=== PATIENT | female | born 1945 | race Caucasian/White ===

== ENCOUNTER 2020-04-17 13:56 | Inpatient (IN) | payer OTHER ==
[~2020-04-17 13:56] MED LIST: BISOPROLOL-HCT1 EAC1 PO; COUMADIN5 MG PO; FEOSOL325 MG PO; JOINT SUPPORT1 EACH PO; LOVENOX40 MG/0.4 SC; OXYCODONE-ACET1 EAC1 PO; PLENDIL **OUT O5 MG PO; PRILOSEC20 MG PO; XARELTO10 MG PO; ZYFLAMEND PO
[2020-04-17 16:19] LABS: BASOPHIL 0.7 % (0-2); EOSINOPHIL 0.8 % (0-7); HCT 39.7 % (37.0-47.0); HGB 13.5 g/dl (12.5-16.0); LYMPHOCYTE 9.7 % (15-48); MCH 30.7 pg (25.0-31.0); MCV 90.2 fL (78.0-100.0); MONOCYTE 5.6 % (0-12); MPV 10.2 fL (6.0-9.5); NEUTROPHIL 82.5 % (41-80); NRBC 0; PLT 240 K/uL (150-400); WBC 10.7 K/uL (4.0-10.5)
[2020-04-17 16:30] LABS: ALBUMIN 3.8 g/dL (3.4-5.0); BILIRUBIN - TOTAL 0.3 mg/dL (0.2-1.0); BUN/CREAT RATIO (CALC) 82.9 RATIO; CREATININE 0.35 mg/dL (0.51-0.95); GLOBULIN (CALCULATION) 4.2 g/dL; POTASSIUM 3.9 mmol/L (3.5-5.1)
[2020-04-17 16:33] LABS: BILIRUBIN NEGATIVE (NEGATIVE); BLOOD NEGATIVE Ery/uL (NEGATIVE); CLARITY CLEAR (CLEAR); COLOR YELLOW (YELLOW); GLUCOSE (U) NORMAL (NORMAL); LEUKOCYTES NEGATIVE Leu/uL (NEGATIVE); NITRITE NEGATIVE (NEGATIVE); PROTEIN NEGATIVE (NEGATIVE); UROBILINOGEN 0.2 mg/dL (0.2-1.0)
[2020-04-17] MEDS ORDERED: ZIAC 5-6.25 MG1 EACH PO (20:26)
[2020-04-17] MEDS ORDERED: ALENDRONATE SOD70 MG PO (20:27)
[2020-04-17] MEDS ORDERED: FELODIPINE ER2.5 MG PO (20:27)
[2020-04-17] MEDS ORDERED: PLAQUENIL200 MG PO (20:28)
[2020-04-19 06:12] LABS: BASOPHIL 0.8 % (0-2); EOSINOPHIL 3.8 % (0-7); HCT 31.2 % (37.0-47.0); HGB 10.4 g/dl (12.5-16.0); LYMPHOCYTE 19.5 % (15-48); MCH 31.1 pg (25.0-31.0); MCHC 33.3 g/dL (32.0-36.0); MCV 93.4 fL (78.0-100.0); MONOCYTE 11.4 % (0-12); NEUTROPHIL 64.1 % (41-80); NRBC 0; PLT 147 K/uL (150-400); RBC 3.34 M/uL (4.20-5.40); RDW 13.5 % (11.5-14.0)
[2020-04-19 06:31] LABS: BUN/CREAT RATIO (CALC) 38.7 RATIO; CREATININE 0.31 mg/dL (0.51-0.95); POTASSIUM 3.4 mmol/L (3.5-5.1)
[2020-04-19 07:43] LABS: INR 1.19 (0.9-1.2); PROTHROMBIN TIME 14.3 SECONDS (11.4-13.6); PTT 29.5 SECONDS (22.2-34.7)
[2020-04-19] MEDS ORDERED: PERCOCET 5-3251 EACH PO (11:34)
[2020-04-20 06:05] LABS: BASOPHIL 0.5 % (0-2); EOSINOPHIL 3.5 % (0-7); HCT 26.5 % (37.0-47.0); HGB 8.8 g/dl (12.5-16.0); LYMPHOCYTE 17.8 % (15-48); MCH 30.8 pg (25.0-31.0); MCHC 33.2 g/dL (32.0-36.0); MCV 92.7 fL (78.0-100.0); MONOCYTE 9.6 % (0-12); MPV 9.8 fL (6.0-9.5); NEUTROPHIL 68.3 % (41-80); NRBC 0; PLT 143 K/uL (150-400); RBC 2.86 M/uL (4.20-5.40); RDW 13.2 % (11.5-14.0); WBC 9.4 K/uL (4.0-10.5)
[2020-04-20 06:17] LABS: BUN/CREAT RATIO (CALC) 27.8 RATIO; CREATININE 0.36 mg/dL (0.51-0.95); POTASSIUM 3.2 mmol/L (3.5-5.1)
--- NOTE | 2020-04-20 17:41 | NUR ---
MET WITH PT. AND DAUGHTER, QI. SHE REQUESTS [facility] FOR PT/OT AND NURSING ASSESSMENT. EXPLAINED AFFLIATIONS. SHE HAS A ROLLING WALKER, 05/10. SHE REQUESTS A WHEELCHAIR. SENT REQUEST TO [facility] WILL BE DELIVERED UPON DISCHARGE. CALLED [facility] WILL BE $94.00 ADVISED PT. OF THE COST. SHE AGREED TO PAY FOR IT.
[2020-04-21 06:15] LABS: BASOPHIL 0.7 % (0-2); EOSINOPHIL 5.1 % (0-7); HCT 23.7 % (37.0-47.0); HGB 7.9 g/dl (12.5-16.0); LYMPHOCYTE 17.8 % (15-48); MCH 30.9 pg (25.0-31.0); MCHC 33.3 g/dL (32.0-36.0); MCV 92.6 fL (78.0-100.0); MONOCYTE 8.3 % (0-12); MPV 10.1 fL (6.0-9.5); NEUTROPHIL 67.9 % (41-80); NRBC 0; PLT 151 K/uL (150-400); RBC 2.56 M/uL (4.20-5.40); RDW 13.2 % (11.5-14.0); WBC 8.8 K/uL (4.0-10.5)
[2020-04-21 06:34] LABS: CREATININE 0.41 mg/dL (0.51-0.95); POTASSIUM 3.8 mmol/L (3.5-5.1)
[2020-04-22 06:07] LABS: EOSINOPHIL 5.2 % (0-7); HCT 27.2 % (37.0-47.0); HGB 8.9 g/dl (12.5-16.0); LYMPHOCYTE 21.1 % (15-48); MCHC 32.7 g/dL (32.0-36.0); MCV 91.6 fL (78.0-100.0); MONOCYTE 10.4 % (0-12); MPV 9.7 fL (6.0-9.5); NEUTROPHIL 61.9 % (41-80); NRBC 0; PLT 152 K/uL (150-400); RBC 2.97 M/uL (4.20-5.40); RDW 14.8 % (11.5-14.0); WBC 7.1 K/uL (4.0-10.5)
[2020-04-22 06:26] LABS: BUN/CREAT RATIO (CALC) 57.1 RATIO; CREATININE 0.35 mg/dL (0.51-0.95)
[2020-04-23 06:27] LABS: EOSINOPHIL 5.6 % (0-7); HCT 29.9 % (37.0-47.0); HGB 9.8 g/dl (12.5-16.0); LYMPHOCYTE 26.5 % (15-48); MCH 30.2 pg (25.0-31.0); MCHC 32.8 g/dL (32.0-36.0); MONOCYTE 9.1 % (0-12); MPV 9.4 fL (6.0-9.5); NEUTROPHIL 57.3 % (41-80); NRBC 0; PLT 186 K/uL (150-400); RBC 3.25 M/uL (4.20-5.40); RDW 14.6 % (11.5-14.0); WBC 6.2 K/uL (4.0-10.5)
[2020-04-23 07:04] LABS: BUN/CREAT RATIO (CALC) 51.4 RATIO; CREATININE 0.35 mg/dL (0.51-0.95); POTASSIUM 3.8 mmol/L (3.5-5.1)
[2020-04-23] MEDS ORDERED: XARELTO10 MG PO (09:23)
[2020-04-23] MEDS ORDERED: PERCOCET 5-3251 EACH PO (12:24)
== END 2020-04-23 11:45 | disposition home health service (06) | DRG 481 ==
LOC: FER 13:56 → FMS 17:07
PROVIDERS: Internal Medicine; Legal Medicine; Nurse Practitioner Adult Health; Nurse Practitioner Family; ADMIT Internal Medicine
PROC: 0QS706Z Reposition Left Upper Femur with Intramedullary Internal Fixation Device, Open Approach (ICD-10-PCS; 2020-04-19)
PROC: 30233N1 Transfusion of Nonautologous Red Blood Cells into Peripheral Vein, Percutaneous Approach (ICD-10-PCS; principal; 2020-04-21)
DX: S72.141A Displaced intertrochanteric fracture of right femur, initial encounter for closed fracture (principal); D62 Acute posthemorrhagic anemia; W18.30XA Fall on same level, unspecified, initial encounter; R01.1 Cardiac murmur, unspecified; I10 Essential (primary) hypertension; E87.6 Hypokalemia; Z20.822 Contact with and (suspected) exposure to COVID-19; Z96.642 Presence of left artificial hip joint; Z88.2 Allergy status to sulfonamides; Z88.1 Allergy status to other antibiotic agents; K21.9 Gastro-esophageal reflux disease without esophagitis; Z96.653 Presence of artificial knee joint, bilateral; M81.0 Age-related osteoporosis without current pathological fracture; L40.50 Arthropathic psoriasis, unspecified
CPT/HCPCS: 36415; 36430; 71045; 73501; 73502; 76000; 80048; 80053; 81003; 85025; 85610; 85730; 86850; 86900; 86901; 86922; 93005; 94010; 94760; 94762; 96374; 96375; 97110; 97162; 97166; 97530-GP; 97535; C1713; J0360; J0697; J1170; J2270; J2405; J2704; J2710; J2795; J3010; J7030; J7120; P9016; U0002